=== PATIENT | male | born 2000 | race African-American/Black ===

== ENCOUNTER 2019-01-15 04:34 | Emergency (ER) | payer BC, OTHER ==
[~2019-01-15] VITALS: Ht 177.8 cm; Wt 122.5 kg
[~2019-01-15 04:34] MED LIST: AGM875T PO; LISD50CA2 PO; ONDAN4ODT PO; OXYC1TAB87 PO; TRAZ50TA67 PO
[2019-01-15] MEDS ORDERED: OXYMETAZOLINE (AFRIN) 0.05% NA 15 ML BTL ONE (04:44)
--- NOTE | 2019-01-15 04:57 | ED EENT ---
History of Present Illness General Chief Complaint: Nasal Problems Stated Complaint: NOSE BLEED STARTS WHEN PT COUGHS Source: patient, family (mom) Exam Limitations: no limitations History of Present Illness Date Seen by Provider: Jan 15, 2019 Time Seen by Provider: 04:41 Initial Comments Patient presents to ER by private conveyance with his mother and chief complaint that since about 2 AM he's been having a nosebleed. He's been doing some coughing but not really having any watery nose watery eyes ears underwater or pressure. He does not know if he has any seasonal allergies but this evening he cut the lawn and has been coughing ever since. No history of asthma. Nonproductive cough no fevers, chills nausea vomiting. Allergies and Home Medications Allergies Coded Allergies: No Known Drug Allergies (Unverified , 08/22/15) Home Medications Benzonatate 100 Mg Capsule, 100 MG PO Q6H PRN for COUGH Prescribed by: MICHELET HATFIELD on 01/15/19 0507 Oxycodone HCl/Acetaminophen 1 Each Tablet, 2 EACH PO Q4H Prescribed by: EDOUARD MONZON on 08/23/15 1305 Patient Home Medication List Home Medication List Reviewed: Yes Review of Systems Review of Systems Constitutional: No chills, No fever Eyes: Denies Blindness, Denies Blurred Vision Ears: Denies Dizziness, Denies Pain Nose: clots; denies congestion; epistaxis; denies pain Mouth: denies swelling, denies bloody discharge, denies clear discharge; other (sore throat) Past Vobxurk-Cuidjf-Uwfcuc Hx Patient Social History Alcohol Use: Denies Use Recreational Drug Use: No Smoking Status: Never a Smoker Recent Foreign Travel: No Contact w/Someone Who Travel: No Seasonal Allergies Seasonal Allergies: No Past Medical History Abdominal, Orthopedic Currently Using CPAP: No Currently Using BIPAP: No Reproductive Disorders: Yes (hypospadias, surgically repaired) HIV/AIDS: No Epi/Hypospadias Abdominal Hernia Loss of Vision: Denies Hearing Impairment: Denies Adverse Reaction/Blood Tranf: No Family Medical History Patient reports no known family medical history. Asthma, Diabetes, Hypertension Physical Exam Vital Signs Vital Signs - First Documented 01/15/19 04:42 Temp 99.0 Pulse 100 Resp 17 B/P (MAP) 158/101 (120) Pulse Ox 97 O2 Delivery Room Air Height, Weight, BMI Height: 5'8.00" Weight: 199lbs. 1.0oz. 90.828752jm; BMI Method:Stated General Appearance: WD/WN, no apparent distress Eyes: bilateral eye normal inspection, bilateral eye PERRL, bilateral eye EOMI Ears: bilateral ear auricle normal, bilateral ear canal normal, bilateral ear TM normal Nose: other (bilateral anterior nasal cavity has some very friable soft mucosa. There was bright red blood in either nare. No one single site of bleeding identified. There did not appear to be significant blood in the posterior nasal cavity.) Mouth/Throat: normal mouth inspection, pharynx normal Cardiovascular: normal peripheral pulses, regular rate, rhythm Respiratory: no respiratory distress, no accessory muscle use Progress/Results/Core Measures Results/Orders My Orders Orders - MICHELET HATFIELD Oxymetazoline 0.05% Nasal [place] (Afrin 0. (01/15/19 04:44) Oxymetazoline 0.05% Nasal [place] (Afrin 0. (01/15/19 09:00) Diphenhydramine Tablet (Benadryl Tablet) (01/15/19 05:00) Medications Given in ED Current Medications Medications Dose Ordered Sig/Jamey Route Start Time Stop Time Status Last Admin Dose Admin Diphenhydramine HCl 25 mg ONCE ONCE PO 01/15/19 05:00 01/15/19 05:01 DC 01/15/19 05:09 25 MG Oxymetazoline HCl 15 ml STK-MED ONCE .ROUTE 01/15/19 04:44 01/15/19 04:46 DC 01/15/19 04:50 15 ML Vital Signs/I&O 01/15/19 04:42 Temp 99.0 Pulse 100 Resp 17 B/P (MAP) 158/101 (120) Pulse Ox 97 O2 Delivery Room Air Progress Progress Note : Time: 04:56 Progress Note Oxymetazoline 4 sprays each nostril and then we will observe him for about 10 minutes. 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 We will send him home with oxymetazoline and instructions for epistaxis management. Departure Impression Primary Impression: Epistaxis Disposition: 01 HOME, SELF-CARE Condition: Stable Departure-Patient Inst. Decision time for Depature: 05:08 Referrals: [facility] (PCP/Family) Primary Care Physician Patient Instructions: Nosebleeds (DC) Add. Discharge Instructions: Keep everything out of your nose including fingers, tissue etc. If you begin to have a nosebleed sit up and lean forward pinch your nostrils closed for 40 minutes and do not swallow the blood. Cough or spit them out. You may also put 2 -3 puffs of the oxymetazoline up each nostril every 4 hours as needed for nosebleed. Use loratadine or cetirizine 10 mg a day as needed for cough, sore throat, bloody nose. Use humidifiers, vapor rubs and throat lozenges as necessary. If your cough persist then you can use the Tessalon Perles 1 Capsule every 6 hours as needed. All discharge instructions reviewed with patient and/or family. Voiced understanding. Scripts Benzonatate (TESSALON PERLES) 100 Mg Capsule 100 MG PO Q6H PRN for COUGH, #20 CAP 0 Refills Prov: MICHELET HATFIELD 01/15/19 MICHELET HATFIELD Jan 15, 2019 04:57
[2019-01-15] MEDS ORDERED: diphenhydrAMINE 25 MG TAB (BENADRYL) PO ONE (05:00)
[2019-01-15] MEDS ORDERED: BENZ100C18 PO (05:07)
[2019-01-15 05:19] VITALS: BP 148/88
[2019-01-15] MEDS ORDERED: OXYMETAZOLINE (AFRIN) 0.05% NA 15 ML BTL SCH (09:00)
== END 2019-01-15 05:19 | disposition home or self-care (01) ==
LOC: EDUNIT# 04:34 → ER 04:37
DX: R04.0 Epistaxis (principal); Z87.19 Personal history of other diseases of the digestive system
CPT/HCPCS: 99284